=== PATIENT | male | born 2000 | race Caucasian/White ===

== ENCOUNTER 2025-01-24 06:34 | Emergency (ER) | payer BC, SELFPAY ==
[2025-01-24 06:38] VITALS: BP 121/72; PULSE 86; RESP 20; TEMP 37; O2SAT 99; BMI 20.8
--- NOTE | 2025-01-24 07:13 | PC.NURSE ---
Pt comes to ED today with c/o intermittent dental pain with new development of facial swelling. Pain is located at teeth #4-5 with external swelling to R face. Pt states pain is intermittent and throbbing in nature. Pt reports dental carries to this area in which were treated while in the service several years ago. Pt denies changes in vision, difficulty swallowing and difficult breathing. Reviewed the need for blood work with Pt. Pt respectfully refuses at this time. Will consult with ED provider.
--- NOTE | 2025-01-24 07:24 | MHC.EDTECH ---
Patient refused blood work
--- NOTE | 2025-01-24 07:55 | ED.DENTAL ---
HPI - Dental/Oral General Chief complaint: Dental/Oral Stated complaint: possible tooth infection Time Seen by Provider: 01/24/25 07:55 Source: patient, RN notes reviewed and old records reviewed Mode of arrival: ambulatory Limitations: no limitations History of Present Illness ED Provider: Courtney [facility] Narrative: Patient is a 24-year-old male presenting to the emergency department with complaint of right upper dental pain and mild facial swelling which began on Saturday. Patient states that he tried calling [facility] where he has gone in the past and they are not open until Saturday. He reports pain is minimal at this time. Denies fevers, chills, body aches. Denies any discharge or drainage. Denies any difficulty opening or closing his jaw or swallowing. MD Complaint: tooth pain Teeth map: 1. dental caries, gingival erythema without edema or fluctuance Onset (ago): day(s) Related Data Previous Rx's ?Medication ?Instructions ?Recorded amoxicillin 875 mg-potassium 1 tab PO BID #20 tabs 01/24/25 clavulanate 125 mg tablet chlorhexidine gluconate 0.12 % 15 ml buccal BID #1,893 mL 01/24/25 mouthwash Allergies Allergy/AdvReac Type Severity Reaction Status Date / Time No Known Allergies Allergy Verified 01/24/25 06:39 Review of Systems Review of Systems: As per HPI Yes all other systems are reviewed and are negative Constitutional: Constitutional: Reports as per HPI [facility] Social History Social History Smoked in Last 30 Days: No Use of substances other than those prescribed or required for medical reasons: No Advance Directives: No Advance Directives Information Provided: Yes Do you have a plan to hurt others: No Plan Physical Exam Vital Signs: Vital Signs: Last Vital Signs Temp 98.6 F 01/24/25 06:38 Pulse 86 01/24/25 06:38 Resp 20 01/24/25 06:38 BP 121/72 01/24/25 06:38 Pulse Ox 99 01/24/25 06:38 O2 Del Method Room Air 01/24/25 06:38 BMI result Body Mass Index 20.8 Vital signs have been reviewed and appear to be correct. Blood pressure normal. Heart rate normal. Respiratory rate normal. Temperature normal. Oxygen saturation normal. Const: General: cooperative, healthy appearing and no acute distress Orientation/consciousness: oriented to person, oriented to place, oriented to time and patient oriented x3 Limitations: no limitations HEENT: Head: Yes normocephalic and Yes atraumatic Ears: external ears normal General nose exam: Normal external nose present Face and sinus: Yes face symmetric and Yes other (mild swelling right middle malar area without fluctuance or tenderness) Mouth: Normal oral and palatal mucosa present, lip normal, tongue normal, oropharynx normal, moist mucous membranes, no audible dysphonia, no drooling, no trismus and No restricted motion Teeth and gingiva: abnormal tooth and associated gingiva (caries with gingival erythema, no edema or fluctuance, no drainage) upper right Throat: Yes uvula midline Eyes: Pupils: Equal, round and reactive pupils present Neck: Neck: Yes normal visual inspection and Yes supple Resp: Effort & Inspection: normal respiratory effort and able to speak in complete sentences Auscultation: clear to auscultation bilaterally Cardio: Rate: regular rate Rhythm: regular rhythm Heart sounds: S1 normal heart sound present and S2 normal heart sound present GI: Palpation (GI): Soft to palpation and nontender Auscultation: normoactive bowel sounds : General: Yes no CVA tenderness Back/Spine/Pelvis: Back: no CVA tenderness Skin: General skin exam: elasticity normal and turgor normal Neuro: General: oriented to person, oriented to place, oriented to time, patient oriented x3, moves all extremities, no focal motor deficits and CN's II-XI intact bilaterally Cranial nerves: Yes Equal, round and reactive pupils present Cognition (Neuro): normal cognition Extrem: General: Yes full ROM, Yes no pedal edema and Yes no calf tenderness Psych: Mental Status: mental status grossly normal Affect: normal affect Thought process: Normal thought process present Medical Decision Making Medical Decision Making MDM Narrative: Patient is a 24-year-old male presenting to the emergency department with complaint of right upper dental pain and mild facial swelling which began on Saturday. On exam patient is awake, A+Ox3, VS WNL, afebrile, normal neurological exam without focal deficits, physical exam findings as above. Given reported symptoms and physical exam findings, initial differential includes but is not limited to toothache, dental infection, dental abscess. Patient declining labs at this time. I am agreeable to this as he is afebrile, nontender, minimal swelling. Will treat with course of Augmentin as well as chlorhexidine mouthwash and instructed patient to follow up with a dentist as soon as possible. Return precautions discussed at bedside. Patient verbalized understanding of and agreement with plan. Differential Diagnosis Differential Diagnoses: The differential diagnosis associated with the presentation includes As per MDM Admission/Observation Consideration of admission/observation: Escalation of care including admission/observation considered Patient would have been admitted to the hospital had their work up had any findings where hospital admission was appropriate and their clinical presentation warranted hospital admission. External Record Review External record reviewed: Inpatient record, Office record and Outpatient record Prescription Management I considered prescription management with: Antibiotic Discharge Plan Discharge Clinical Impression: Dental abscess Patient Disposition: Home, Self-Care Instructions: Dental Abscess (ED), Root Canal (DC) Additional Instructions: You were evaluated in the emergency department today for complaint of dental pain. You are being treated for a dental infection with antibiotics. Please complete the full course of antibiotics as prescribed even if your symptoms improve. IT IS IMPORTANT THAT YOU FOLLOW UP WITH YOUR DENTIST. We recommend that you take 600 mg of ibuprofen or 650 mg Tylenol every 6 hours as needed for pain. If necessary, you can alternate these medications every 3 hours. For example, at 9:00 a.m. take Tylenol, then at noon take ibuprofen, then at 3:00 p.m. take Tylenol, etc.. Return to the emergency department if you develop worsening pain, swelling, difficulty swallowing, difficulty breathing, fever, or any other concerning symptoms. Your prescriptions have been sent to: [facility] at [address] [place] [id number] Call or visit any of the clinics below to establish care with a dentist: [facility] [address] [place] [address] [facility] [address] [facility], [address] [address] D[address] [place] [id number] [facility] [address] [place] [id number] [facility] [address] [place] [address] [place] [address] [place] [address] Prescriptions: New amoxicillin-pot clavulanate 875-125 mg tablet 1 tab PO BID Qty: 20 0RF chlorhexidine gluconate 0.12 % mouthwash 15 ml buccal BID Qty: 189 0RF Print Language: Cameroonian
[2025-01-24] MEDS: Amoxicillin/Potassium Clav 875 MG TABLET PO (08:06)
[2025-01-24 08:09] VITALS: BP 121/72; PULSE 86; RESP 20; TEMP 37; O2SAT 99
== END 2025-01-24 08:10 | disposition home or self-care (01) ==
PROVIDERS: Emergency Provider Emergency Medicine Emergency Medical Services
DX: K04.7 Periapical abscess without sinus (principal); K02.9 Dental caries, unspecified
CPT/HCPCS: 99283; 99284